=== PATIENT | female | born 1950 | race Caucasian/White ===

== ENCOUNTER 2017-08-01 11:14 | Observation (INO) | payer OTHER ==
[~2017-08-01] VITALS: Ht 165.1 cm; Wt 57.9 kg
[2017-08-01 11:49] LABS: BASOPHILS % (AUTO) 0.4 % (0.0-5.0); EOSINOPHILS % (AUTO) 0.1 % (0.0-8.0); HEMATOCRIT 41.7 % (36-48); LYMPHOCYTES % (AUTO) 12.4 % (21.0-51.0); MEAN CORPUSCULAR HGB CONC 35.7 g/dL (32.0-36.0); MEAN CORPUSCULAR VOLUME 92.4 fL (79-99); MONOCYTES % (AUTO) 4.6 % (3.0-13.0); NEUTROPHILS % (AUTO) 82.5 % (40.0-77.0); PLATELET COUNT (AUTO) 325 K/uL (130-400); RED BLOOD CELL COUNT(AUTO) 4.51 MIL/uL (4.00-5.50); RED CELL DISTRIBUTION WIDTH 12.6 % (11.0-15.5); WHITE BLOOD COUNT (AUTO) 10.2 K/uL (4.8-10.8)
[2017-08-01 12:00] VITALS: BP 141/94
[2017-08-01 12:02] LABS: AMYLASE 54 U/L (25-115); LIPASE 120 U/L (114-286); POTASSIUM 3.8 mmol/L (3.5-5.1)
[2017-08-01 12:06] LABS: ALBUMIN 4.6 g/dL (3.5-5.0); BILIRUBIN,DIRECT 0.1 mg/dL (0.0-0.3); BILIRUBIN,TOTAL 0.6 mg/dL (0.2-1.0); TOTAL PROTEIN, SERUM 7.6 g/dL (6.0-8.3)
[2017-08-01] MEDS ORDERED: DEXTROSE 5 %-0.45 % NACL 1,000 ML IV ONE (12:39)
[2017-08-01] MEDS: ONDANSETRON HCL 4 MG/2 ML VIAL IVP PRN ×2 (12:42→23:36)
[2017-08-01] MEDS ORDERED: ZOLPIDEM TARTRATE 5 MG TAB PO PRN (12:45)
[2017-08-01] MEDS ORDERED: DIPHENHYDRAMINE HCL 25 MG CAPSULE PO PRN (12:45)
[2017-08-01 16:00] VITALS: BP 110/84
[2017-08-01] MEDS: PANTOPRAZOLE SODIUM 40 MG TABLET.DR PO SCH (17:19)
[2017-08-01] MEDS: FAMOTIDINE 20MG TAB 20 MG TAB PO SCH (20:41)
[2017-08-01 20:59] VITALS: BP 134/78
[2017-08-01] MEDS ORDERED: HYDROMORPHONE HCL 0.5 MG/0.5 ML ML ONE (22:18)
[2017-08-01] MEDS ORDERED: HYDROMORPHONE HCL 0.5 MG/0.5 ML ML IVP PRN (22:30)
[2017-08-01] MEDS: DEXTROSE 5 %-0.45 % NACL 1,000 ML IV SCH (23:36)
[2017-08-02 00:33] VITALS: BP 152/87
[2017-08-02 04:34] VITALS: BP 126/73
[2017-08-02] MEDS ORDERED: CYAN-35 PO (05:02)
[2017-08-02] MEDS ORDERED: UBID300C PO (05:02)
[2017-08-02] MEDS ORDERED: AMIL5TAB8 PO (05:03)
[2017-08-02] MEDS ORDERED: MAGN250T10 PO (05:03)
[2017-08-02] MEDS ORDERED: ESZO3TAB38 PO (05:14)
[2017-08-02] MEDS ORDERED: CHLO25TA3 PO (05:14)
[2017-08-02] MEDS ORDERED: DEXL60CA3 PO (05:15)
[2017-08-02] MEDS ORDERED: SPIR100T PO (05:15)
[2017-08-02] MEDS ORDERED: CALC-877 PO (05:32)
[2017-08-02] MEDS ORDERED: FLUT16H NASAL (05:32)
[2017-08-02 05:35] LABS: HEMATOCRIT 36.7 % (36-48); MEAN CORPUSCULAR HEMOGLOBIN 32.7 pg (27.0-33.0); MEAN CORPUSCULAR HGB CONC 35.3 g/dL (32.0-36.0); MEAN CORPUSCULAR VOLUME 92.6 fL (79-99); PLATELET COUNT (AUTO) 300 K/uL (130-400); RED BLOOD CELL COUNT(AUTO) 3.96 MIL/uL (4.00-5.50); RED CELL DISTRIBUTION WIDTH 12.8 % (11.0-15.5)
[2017-08-02] MEDS ORDERED: RANI300T7 PO (05:41)
[2017-08-02] MEDS ORDERED: TRINTELLIX PO (05:41)
[2017-08-02 05:47] LABS: ALBUMIN 3.4 g/dL (3.5-5.0); BILIRUBIN,DIRECT 0.1 mg/dL (0.0-0.3); BILIRUBIN,TOTAL 0.6 mg/dL (0.2-1.0); CREATININE 0.9 mg/dL (0.5-1.5); POTASSIUM 3.3 mmol/L (3.5-5.1); TOTAL PROTEIN, SERUM 6.5 g/dL (6.0-8.3)
[2017-08-02] MEDS: ONDANSETRON HCL 4 MG/2 ML VIAL IVP PRN (06:43)
[2017-08-02 07:00] VITALS: BP 114/72
[2017-08-02 11:00] VITALS: BP 109/75
[2017-08-02] MEDS: PANTOPRAZOLE SODIUM 40 MG TABLET.DR PO SCH (11:10)
[2017-08-02] MEDS: FAMOTIDINE 20MG TAB 20 MG TAB PO SCH (11:10)
[2017-08-02] MEDS: DEXTROSE 5 %-0.45 % NACL 1,000 ML IV SCH (11:19)
[2017-08-02 16:00] VITALS: BP 144/91
== END 2017-08-02 18:30 | disposition home or self-care (01) ==
LOC: EDH 11:14 → 3DH 11:15
PROVIDERS: ADMIT Internal Medicine; ATTEND Internal Medicine
DX: E86.0 Dehydration (principal); K29.70 Gastritis, unspecified, without bleeding; I10 Essential (primary) hypertension; Z90.49 Acquired absence of other specified parts of digestive tract
CPT/HCPCS: 36415 ×2; 80048 ×2; 80076 ×2; 82150; 83690; 85025; 85027; 96361 ×2; 96374; 96375; 96376 ×2; 99285; G0378 ×31; J1170; J2405 ×3; J7042 ×3